=== PATIENT | female | born 1970 | race Caucasian/White ===

== ENCOUNTER 2016-06-08 06:05 | Inpatient (IN) | payer OTHER ==
[~2016-06-08] VITALS: Ht 170.2 cm; Wt 139.6 kg
[~2016-06-08 06:05] MED LIST: ASPI-664 PO; BENA10TA48 PO; INSU100C SC; LANT3I SC
--- NOTE | 2016-06-08 06:25 | ERA ---
ER Documentation Chief Complaint Date/Time DATE: 06/08/16 TIME: 06:22 Chief Complaint midsternal chest pain, cough,Dx @ [place] for CHF & cough HPI This is a 46-year-old female that was transferred from [facility] for direct admission to treat congestive heart failure and pneumonia however no beds were available therefore she came through the emergency room. The patient had had a non-productive cough for the past 48 hours with pleuritic chest pain. She has a history of hypertension and insulin-dependent diabetes mellitus. She denied any fever shaking or chills. The patient denies any swelling of her lower extremities. She denies any shortness of breath at rest or exertion. The patient indicates she has been compliant with her medications and takes 20 mg of Lasix on a daily basis. The patient is a chest radiograph that was performed at [facility] and indicated that there was a mild right costophrenic angle opacity that likely was due to effusion and atelectasis although pneumonia cannot be excluded. The patient had been given IV Rocephin and nebulizer treatment as according to the dictation note from the original evaluating physician at [place] had respirations that were even and unlabored with no accessory muscle use. ROS All systems reviewed and are negative except as per history of present illness. Medications Home Meds Reported Medications Aspirin* (Aspirin* EC) 81 Mg Tablet.dr, 81 MG PO DAILY, TAB 03/26/14 Benazepril Hcl* (Benazepril Hcl*) 10 Mg Tablet, 10 MG PO DAILY, TAB 03/26/14 Insulin Glargine* (Lantus*) 100 Unit/Ml Soln, 10 UNIT SC DAILY, EA 03/26/14 Insulin Lispro (Humalog) 100 U/Ml Cartridge, 14 UNITS SC BID, EA 03/26/14 Allergies Allergies: Coded Allergies: No Known Allergy (Unverified , 06/08/16) PMhx/Soc Hx Alcohol Use: No Hx Substance Use: No Hx Tobacco Use: No Physical Exam Vitals Vital Signs Date Time Temp Pulse Resp B/P Pulse Ox O2 Delivery O2 Flow Rate FiO2 06/08/16 06:14 98.7 86 18 115/73 100 Physical Exam Constitutional:Well-developed. Well-nourished. HEENT:Normocephalic. Atraumatic.Pupils were equal round reactive to light. Moist mucous membranes.No tonsillar exudates. Neck: No nuchal rigidity. No lymphadenopathy. No posterior cervical spine tenderness or step-offs. Respiratory: Not using accessory muscles of respiration.Lungs were clear to auscultation bilaterally. No rhonchi. No rales. No wheezing. Cardiovascular: Regular rate regular rhythm.No murmurs. No rubs were appreciated.S1, S2 normal. Distal pulses are palpable 2+ bilaterally. GI: Abdomen was soft. Nontender. Non Distended. No pulsatile abdominal masses or bruits. No rebound. No guarding. Bowel sounds were present and normal. Muscle skeletal: Full range of motion of both the upper and lower extremities bilaterally.Normal muscle tone.No assymetrical calf tenderness or swelling. Skin: No petechia, no purpura. No lesions on the palms or the soles of the feet. No maculopapular rash. NEURO: Patient was alert, awake, orientated x3.No facial droop. Gait observed and normal with no ataxia.Speech had regular rate and rhythm. No focal neurological deficits. Results 24 hrs Laboratory Tests Test 06/08/16 07:18 Bedside Glucose 47mg/dL Current Medications Medications (Trade) Dose Ordered Sig/Frank Route PRN Reason Start Time Stop Time Status Last Admin Dose Admin Ondansetron HCl (Zofran Inj) 4 mg ER BRIDGE PRN IV NAUSEA AND/OR VOMITING 06/08/16 07:00 06/09/16 06:59 Acetaminophen (Tylenol Tab) 650 mg ER BRIDGE PRN PO MILD PAIN/FEVER 06/08/16 07:00 06/09/16 06:59 Dextrose (D50w Syringe) 50 ml STK-MED ONCE .ROUTE 06/08/16 07:21 06/08/16 07:22 DC Dextrose (D50w Syringe) 50 ml ONCE STAT IV 06/08/16 07:22 06/08/16 07:23 DC 06/08/16 07:25 Procedures/MDM This patient had already been transferred from [facility] with ancillary laboratory work chest radiograph and an EKG that indicated the patient had a normal sinus rhythm at 88 bpm. DC interval normal QRS duration normal there is left atrial enlargement and time of the EKG was a 2316. The patient was in no respiratory distress upon arrival into the emergency department at [facility] after she been transferred from [place]. She is already received blood cultures and had been given IV Rocephin. Report had been given to Dr. Altman and I will inform her that the patient has arrived. Therefore the patient will be admitted in serious condition to the telemetry service for pneumonia. The patient's BNP obtained at [facility] was 423. The patient was anemic with hemoglobin of 8.9 Rocephin had been given at 1 :07 AM. I spoke with Dr. Osullivan and the patient is currently awaiting a bed on the telemetry service. Therefore at this time I have repeated ancillary laboratory work and chest x-ray as requested by Dr. Osullivan. The patient stated she was feeling slightly diaphoretic and anxious and therefore nursing staff repeated an Accu-Chek which was 47. The patient was given juice and an amp of D50 and had remained alert awake orientated 3. Departure Diagnosis: Primary Impression: Pneumonia Qualified Code: J18.9 - Pneumonia of right lower lobe due to infectious organism Condition: Serious KASIA THOMPSON Jun 08, 2016 06:25
[2016-06-08] MEDS ORDERED: ACETAMINOPHEN 325 MG TAB PO PRN ×2 (07:00→11:30)
[2016-06-08] MEDS ORDERED: ONDANSETRON 4 MG INJ IV PRN (07:00)
[2016-06-08 07:17] LABS: ADD SCAN DIFF NO
[2016-06-08] MEDS ORDERED: DEXTROSE 50% 50 ML SYRINGE ONE (07:21)
[2016-06-08] MEDS ORDERED: DEXTROSE 50% 50 ML SYRINGE IV STA (07:22)
[2016-06-08 07:34] LABS: BASOPHILS % 0.4 % (0.0-2.0); EOSINOPHILS # 0.1 10^3/ul (0.0-0.5); EOSINOPHILS % 2.5 % (0.0-7.0); HEMATOCRIT 26.5 % (37.0-47.0); HEMOGLOBIN 8.5 g/dl (12.0-16.0); LYMPHOCYTES # 1.3 10^3/ul (0.8-2.9); LYMPHOCYTES % 23.5 % (15.0-51.0); MEAN CORPUSCULAR HEMOGLOBIN 28.2 pg (29.0-33.0); MEAN CORPUSCULAR HGB CONC 32.1 g/dl (32.0-37.0); MEAN PLATELET VOLUME 10.2 fl (7.4-10.4); MONOCYTE # 0.6 10^3/ul (0.3-0.9); NEUTROPHIL # 3.5 10^3/ul (1.6-7.5); NEUTROPHILS % 62.4 % (39.0-77.0); PLATELET COUNT 317 10^3/UL (140-415); RED BLOOD COUNT 3.01 10^6/ul (4.20-5.40); RED CELL DISTRIBUTION WIDTH 14.1 % (11.5-14.5); WHITE BLOOD COUNT 5.7 10^3/ul (4.8-10.8)
[2016-06-08 07:49] LABS: INR 0.97; PARTIAL THROMBOPLASTIN TIME 27.5 Sec (25.0-35.0); PROTIME 12.9 Sec (12.2-14.2)
[2016-06-08 08:39] LABS: ALBUMIN 3.3 g/dl (3.3-4.9); CHLORIDE 107 mmol/L (97-110)
[2016-06-08 08:40] LABS: POTASSIUM 4.4 mmol/L (3.5-5.1); SODIUM 139 mmol/L (135-144)
--- NOTE | 2016-06-08 08:40 | RADRPT ---
PROCEDURE: XR Chest. CLINICAL INDICATION: Chest pain. TECHNIQUE: Single frontal chest x-ray. COMPARISON: None available. FINDINGS: The cardiomediastinal silhouette is unremarkable. Bibasilar atelectasis is noted. No pneumothorax, pleural effusion or consolidation is seen. No acute osseous abnormality is noted. IMPRESSION: 1. Bibasilar atelectasis. 2. Otherwise no acute cardiopulmonary abnormality. RPTAT: QQ .Eileen Fink MD, Date Time Electronically viewed and signed by .Eileen Fink MD, on 06/08/2016 08:39 .N/
[2016-06-08 08:42] LABS: ALKALINE PHOSPHATASE 70 IU/L (42-121); ASPARTATE AMINO TRANSFERASE 19 IU/L (15-46); BILIRUBIN,INDIRECT 0.1 mg/dl (0-1.1); CARBON DIOXIDE 23 mmol/L (21-31); TOTAL PROTEIN 6.3 g/dl (6.1-8.1)
[2016-06-08 08:44] LABS: ANION GAP 13 (8-16)
[2016-06-08 08:45] LABS: ALANINE AMINOTRANSFERASE 29 IU/L (13-69); BILIRUBIN,TOTAL 0.1 mg/dl (0.2-1.3); BLOOD UREA NITROGEN 32 mg/dl (7-20); CALCIUM 8.5 mg/dl (8.4-10.2); CREATINE KINASE 100 IU/L (23-200); CREATININE 1.46 mg/dl (0.44-1.00); GLUCOSE 50 mg/dl (70-220)
[2016-06-08] MEDS ORDERED: INSU100C SQ (09:01)
[2016-06-08] MEDS ORDERED: BENA5TAB2 PO (09:01)
[2016-06-08 09:02] LABS: B-TYPE NATRIURETIC PEPTIDE 388 PG/ML (0-125); CK-MB 0.71 ng/ml (0.0-2.4); TROPONIN-I < 0.012 ng/ml (0.00-0.12)
[2016-06-08] MEDS ORDERED: INSU300I SQ ×2 (09:02)
[2016-06-08] MEDS ORDERED: GLUCOSE GEL 15 GRAM TUBE PO PRN ×2 (11:30)
[2016-06-08] MEDS ORDERED: ONDANSETRON 4 MG TAB PO PRN (11:30)
[2016-06-08] MEDS ORDERED: GLUCOSE GEL 15 GRAM TUBE BUCCAL PRN (11:30)
[2016-06-08] MEDS ORDERED: GLUCAGON 1 MG INJ IM PRN (11:30)
[2016-06-08] MEDS ORDERED: DEXTROSE 50% 50 ML SYRINGE IV PRN ×2 (11:30)
[2016-06-08] MEDS ORDERED: DOCUSATE SODIUM 100 MG CAP PO PRN (11:30)
[2016-06-08] MEDS ORDERED: AZITHROMYCIN 250 MG TAB PO ONE (11:30)
[2016-06-08] MEDS ORDERED: NACL 0.9% 3 ML SYG IV SCH (11:30)
[2016-06-08] MEDS: INSULIN ASPART [NOVOLOG] 3 ML PEN SC SCH ×2 (12:03→18:09)
[2016-06-08] MEDS: FUROSEMIDE 20 MG TAB PO SCH (12:10)
[2016-06-08 18:47] VITALS: TEMP 98.7
[2016-06-08] MEDS: CEFTRIAXONE 1 GM/50 ML (PMX) 50 ML IVPB SCH (19:14)
[2016-06-08] MEDS: HYDROCODONE/APAP (5/325) TAB PO PRN (19:15)
[2016-06-08 20:00] VITALS: BP 129/75; RESP 19
[2016-06-08] MEDS: INSULIN GLARGINE [LANtus] 3 ML PEN SC SCH (20:00)
[2016-06-08 21:57] VITALS: Ht 170.2 cm; Wt 139.6 kg
[2016-06-09] VITALS (10 sets, daily range): BP systolic 103–136; BP diastolic 58–82; PULSE 54–83; RESP 18–19
[2016-06-09] MEDS: PANTOPRAZOLE (EC) 40 MG TAB PO SCH (05:50)
[2016-06-09] MEDS: INSULIN ASPART [NOVOLOG] 3 ML PEN SC SCH ×3 (07:25→17:18)
--- NOTE | 2016-06-09 07:39 | HP ---
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 CHIEF COMPLAINT: Cough and congestion. HISTORY OF PRESENT ILLNESS: This is a 46-year-old female with past medical history of diabetes rica itus, hypertension, dyslipidemia, morbid obesity, renal insufficiency, trigger finger, bilateral ank le surgery, who has been complaining of having cough and congestion for the past week. She was seen and evaluated at [facility] on Tuesday and was started on azithromycin, al though the patient continued to complain of having cough and congestion without any fever or chills. She returned back to [facility] complaining of exacerbation of her cough . Chest x-ray was obtained which showed mild right costophrenic angle likely due to effusion and atelectasis, although pneumonia could not be excluded. WBC was found to be mildly elevated at 10.1. The patient was treated with a dose of azithromycin and Lasix in the course of the emergency room and was transferred to [facility] secondary to insurance purposes. At this t [facility], patient continues to have cough and congestion. She denies having any chest pain. No shortnes s of breath. No abdominal pain, no nausea, vomiting, diarrhea. No headache, dizziness. No neck pa in. No restricted range of motion upper and lower extremities or any other discomfort. PAST MEDICAL AND SURGICAL HISTORY: As above per HPI. MEDICATIONS: 1. Aspirin. 2. Benazepril. 3. Lantus. 4. Humalog. ALLERGIES: NO KNOWN DRUG ALLERGIES. FAMILY HISTORY: Positive for hypertension and diabetes. SOCIAL HISTORY: Denies smoking cigarettes, illicit drugs or alcohol. She lives at home with her [facility]. REVIEW OF SYSTEMS: As above per HPI, otherwise 12 review of systems has been found to be negative. PHYSICAL EXAMINATION: VITAL SIGNS: Temperature 98.7, pulse 82, respirations 19, blood pressure 123/70, oxygen 100% in pina m air. GENERAL APPEARANCE: The patient is lying in bed comfortably without any distress. She is awake, al ert, oriented. She is able to answer my questions properly. Body habitus is morbidly obese with BM I of 48.2. EYES AND ENT: Conjunctivae and lids are normal. Pupils are normal. Extraocular normal. Hearing g rossly normal. Lips, teeth and gums normal. Oral mucosa is mildly dry. NECK: Supple. Trachea midline. No lymphadenopathy. RESPIRATORY: Effort is normal. Clear to auscultation bilaterally. CARDIOVASCULAR: Normal S1, S2. Regular rhythm and rate. No murmur, no bruits, no edema. Peripher al pulses, radial pulses palpable. Capillary refill is normal. CHEST: Normal expansion of thorax during inspiration. GASTROINTESTINAL: Abdomen is soft, nontender, not distended. Bowel sounds present. No guarding or rebound. GENITOURINARY: Deferred. MUSCULOSKELETAL: Upper and lower extremities within normal limits. Full range of motion. Strength 5/5 in both upper and lower extremities. NEUROLOGIC: Cranial nerves II through XII are grossly intact. PSYCHIATRIC: Normal judgment and insight. Alert and oriented x3. Mood and affect is normal. LABORATORY DATA: Potassium 5.0, BUN 35, creatinine 1.63, calcium 8.4, GFR 34. BNP 423. EKG showed normal sinus rhythm with possible left atrial enlargement, nonspecific T-wave abnormality, ventricu lar rate of 88. Chest x-ray as above per HPI. WBC 10.1, hemoglobin 8.9, hematocrit 27.2, MCV 84, p latelet 291. ASSESSMENT AND PLAN: 1. Mild right pleural effusion with possible pneumonia. The patient has been started on azithromyc in and Rocephin will continue this regimen. 2. Diabetes mellitus. Continue Lantus insulin sliding scale and low carbohydrate diet. 3. Essential hypertension, well controlled on medical management. 4. Questionable congestive heart failure with a BNP of 423. The patient has been started on Lasix. Continue benazepril. 5. Morbid obesity. Diet and exercise has been recommended. 6. Anemia. We will continue to monitor. We will transfuse if hemoglobin is less than 7.5. 7. For deep venous thrombosis prophylaxis, at this time will place the patient on sequential compre ssion devices. Refrain from using any pharmacologic DVT prophylaxis secondary to anemia. 8. Dictation Ends Here. Dictated By: DELANO PEOPLES/ERASMO Conf#: [id number] DID#: [id number]
[2016-06-09 07:50] LABS: ADD SCAN DIFF NO
[2016-06-09 07:59] LABS: BASOPHILS % 0.9 % (0.0-2.0); EOSINOPHILS # 0.2 10^3/ul (0.0-0.5); EOSINOPHILS % 4.2 % (0.0-7.0); HEMATOCRIT 28.5 % (37.0-47.0); HEMOGLOBIN 9.1 g/dl (12.0-16.0); LYMPHOCYTES # 1.5 10^3/ul (0.8-2.9); LYMPHOCYTES % 35.5 % (15.0-51.0); MEAN CORPUSCULAR HEMOGLOBIN 28.1 pg (29.0-33.0); MEAN CORPUSCULAR HGB CONC 31.9 g/dl (32.0-37.0); MEAN PLATELET VOLUME 10.5 fl (7.4-10.4); MONOCYTE # 0.6 10^3/ul (0.3-0.9); MONOCYTES % 13.1 % (0.0-11.0); NEUTROPHILS % 46.1 % (39.0-77.0); PLATELET COUNT 313 10^3/UL (140-415); RED BLOOD COUNT 3.24 10^6/ul (4.20-5.40); RED CELL DISTRIBUTION WIDTH 14.1 % (11.5-14.5); WHITE BLOOD COUNT 4.3 10^3/ul (4.8-10.8)
[2016-06-09 08:10] LABS: POTASSIUM 4.7 mmol/L (3.5-5.1)
[2016-06-09 08:12] LABS: CREATININE 1.41 mg/dl (0.44-1.00)
[2016-06-09 08:14] LABS: MAGNESIUM 1.8 mg/dl (1.7-2.5)
[2016-06-09] MEDS: FUROSEMIDE 20 MG TAB PO SCH (08:48)
[2016-06-09] MEDS: BENAZEPRIL 5 MG TAB PO SCH (08:48)
[2016-06-09] MEDS: AZITHROMYCIN 250 MG TAB PO SCH (08:48)
[2016-06-09] MEDS: ASPIRIN (EC) 81 MG TAB PO SCH (08:48)
[2016-06-09] MEDS: HYDROCODONE/APAP (5/325) TAB PO PRN ×2 (08:55→21:17)
[2016-06-09] MEDS ORDERED: ENOXAPARIN 40 MG/0.4 ML SYG SC SCH (09:00)
--- NOTE | 2016-06-09 12:14 | PN ---
Date/Time of Note Date/Time of Note DATE: 06/09/16 TIME: 12:13 Assessment/Plan VTE Prophylaxis VTE Prophylaxis Intervention: SCD's Lines/Catheters IV [facility]ter [facility]from [facility] Urinary Cath still in place: No Assessment/Plan Assessment/Plan 1. Mild right pleural effusion with possible pneumonia. The patient has been started on azithromycin and Rocephin will continue this regimen. 2. Diabetes mellitus. Continue Lantus insulin sliding scale and low carbohydrate diet. 3. Essential hypertension, well controlled on medical management. 4. Questionable congestive heart failure with a BNP of 423. The patient has been started on Lasix. Continue benazepril. 5. Morbid obesity. Diet and exercise has been recommended. 6. Anemia. We will continue to monitor. We will transfuse if hemoglobin is less than 7.5. 7. For deep venous thrombosis prophylaxis, SCD downgrade to med/surge floor Subjective 24 Hr Interval Summary Free Text/Dictation Cr 1.41, SOB improvig, BP stable Exam/Review of Systems Vital Signs Vitals Vital Signs Date Time Temp Pulse Resp B/P Pulse Ox O2 Delivery O2 Flow Rate FiO2 06/09/16 12:11 74 06/09/16 11:37 98.1 18 103/58 96 06/08/16 18:47 Room Air Intake and Output 06/08/16 06/08/16 06/09/16 15:00 23:00 07:00 Intake Total 400 ml Balance 400 ml Exam GENERAL APPEARANCE: no acute distress, morbidly obese RESPIRATORY: Effort is normal. Clear to auscultation bilaterally. CARDIOVASCULAR: Normal S1, S2. Regular rhythm and rate. No murmur, no bruits , no edema. Peripheral pulses, radial pulses palpable. Capillary refill is normal. CHEST: Normal expansion of thorax during inspiration. GASTROINTESTINAL: Abdomen is soft, nontender, not distended. Bowel sounds present. No guarding or rebound. MUSCULOSKELETAL: Upper and lower extremities within normal limits. Full range of motion. Strength 5/5 in both upper and lower extremities. Results Result Diagram: 06/09/16 0706/09/16 07 Results 24 hrs Laboratory Tests Test 06/08/16 20:56 06/09/16 07:03 06/09/16 08:12 06/09/16 11:41 Bedside Glucose 112 88 144 White Blood Count 4.3 #L Red Blood Count 3.24 L Hemoglobin 9.1 L Hematocrit 28.5 L Mean Corpuscular Volume 88.0 Mean Corpuscular Hemoglobin 28.1 L Mean Corpuscular Hemoglobin Concent 31.9 L Red Cell Distribution Width 14.1 Platelet Count 313 Mean Platelet Volume 10.5 H Neutrophils % 46.1 Lymphocytes % 35.5 Monocytes % 13.1 H Eosinophils % 4.2 Basophils % 0.9 Nucleated Red Blood Cells % 0.0 Neutrophils # 2.0 Lymphocytes # 1.5 Monocytes # 0.6 Eosinophils # 0.2 Basophils # 0.0 Nucleated Red Blood Cells # 0.0 Sodium Level 139 Potassium Level 4.7 Chloride Level 109 Carbon Dioxide Level 24 Anion Gap 11 Blood Urea Nitrogen 30 H Creatinine 1.41 H Glucose Level 97 # Calcium Level 9.0 Magnesium Level 1.8 Medications Medications Current Medications Aspirin (Halfprin) 81 mg DAILY PO Last administered on 06/09/16 08:48; Admin Dose 81 MG; Start 06/09/16 at 09:00 Benazepril HCl 5 mg 5 mg DAILY PO Last administered on 06/09/16 08:48; Admin Dose 5 MG; Start 06/09/16 at 09:00 Ceftriaxone Sodium (Rocephin) 50 ml @ 100 mls/hr Q24H IVPB Last administered on 06/08/16 19:14; Admin Dose 100 MLS/HR; Start 06/08/16 at 20:00 Azithromycin (Zithromax) 250 mg DAILY PO Last administered on 06/09/16 08:48; Admin Dose 250 MG; Start 06/09/16 at 09:00; Stop 06/11/16 at 23:00 Miscellaneous Information 1 ea NOTE XX ; Start 06/08/16 at 11:30 Glucose (Glutose) 15 gm Q15M PRN PO DECREASED GLUCOSE; Start 06/08/16 at 11:30 Glucose (Glutose) 22.5 gm Q15M PRN PO DECREASED GLUCOSE; Start 06/08/16 at 11: 30 Dextrose (D50w Syringe) 25 ml Q15M PRN IV DECREASED GLUCOSE; Start 06/08/16 at 11:30 Dextrose (D50w Syringe) 50 ml Q15M PRN IV DECREASED GLUCOSE; Start 06/08/16 at 11:30 Glucagon (Glucagen) 1 mg Q15M PRN IM DECREASED GLUCOSE; Start 06/08/16 at 11:30 Glucose (Glutose) 15 gm Q15M PRN BUCCAL DECREASED GLUCOSE; Start 06/08/16 at 11 :30 Ondansetron HCl (Zofran Tab) 4 mg Q6H PRN PO NAUSEA AND/OR VOMITING; Start at 11:30 Acetaminophen (Tylenol Tab) 650 mg Q6H PRN PO PAIN LEVEL 1-3 OR FEVER; Start at 11:30 Acetaminophen/ Hydrocodone Bitart (Lyons (5/325)) 1 tab Q6H PRN PO MODERATE PAIN LEVEL 4-6 Last administered on 06/09/16 08:55; Admin Dose 1 TAB; Start at 11:30 Docusate Sodium (Colace) 100 mg Q12H PRN PO CONSTIPATION; Start 06/08/16 at 11: 30 Pantoprazole (Protonix Tab) 40 mg DAILY@06 PO Last administered on 06/09/16 05 :50; Admin Dose 40 MG; Start 06/09/16 at 06:00 Insulin Glargine (Lantus) 20 unit DAILY@20 SC ; Start 06/08/16 at 20:00 Furosemide (Lasix) 20 mg DAILY PO Last administered on 06/09/16 08:48; Admin Dose 20 MG; Start 06/08/16 at 12:00 NOAM ALVAREZ MD Jun 09, 2016 12:14
[2016-06-09] MEDS: CEFTRIAXONE 1 GM/50 ML (PMX) 50 ML IVPB SCH (20:58)
[2016-06-09] MEDS: INSULIN GLARGINE [LANtus] 3 ML PEN SC SCH (21:23)
[2016-06-10] VITALS: BP 122/66; RESP 19
[2016-06-10 05:09] VITALS: BP 118/69; RESP 19
[2016-06-10] MEDS: PANTOPRAZOLE (EC) 40 MG TAB PO SCH (06:22)
[2016-06-10 07:26] VITALS: BP 108/62; RESP 18
[2016-06-10] MEDS: AZITHROMYCIN 250 MG TAB PO SCH (08:31)
[2016-06-10] MEDS: FUROSEMIDE 20 MG TAB PO SCH (08:32)
[2016-06-10] MEDS: BENAZEPRIL 5 MG TAB PO SCH (08:32)
[2016-06-10] MEDS: ASPIRIN (EC) 81 MG TAB PO SCH (08:32)
[2016-06-10] MEDS: INSULIN ASPART [NOVOLOG] 3 ML PEN SC SCH ×3 (08:40→17:29)
[2016-06-10 11:38] VITALS: BP 111/63; RESP 18
[2016-06-10 12:23] LABS: ADD SCAN DIFF NO
[2016-06-10 12:30] LABS: BASOPHILS % 0.4 % (0.0-2.0); EOSINOPHILS # 0.1 10^3/ul (0.0-0.5); EOSINOPHILS % 2.6 % (0.0-7.0); HEMATOCRIT 29.5 % (37.0-47.0); HEMOGLOBIN 9.5 g/dl (12.0-16.0); LYMPHOCYTES # 2.2 10^3/ul (0.8-2.9); LYMPHOCYTES % 47.1 % (15.0-51.0); MEAN CORPUSCULAR HEMOGLOBIN 28.3 pg (29.0-33.0); MEAN CORPUSCULAR HGB CONC 32.2 g/dl (32.0-37.0); MEAN CORPUSCULAR VOLUME 87.8 fl (82.0-101.0); MEAN PLATELET VOLUME 10.4 fl (7.4-10.4); MONOCYTE # 0.6 10^3/ul (0.3-0.9); MONOCYTES % 12.7 % (0.0-11.0); NEUTROPHIL # 1.7 10^3/ul (1.6-7.5); PLATELET COUNT 319 10^3/UL (140-415); RED BLOOD COUNT 3.36 10^6/ul (4.20-5.40); RED CELL DISTRIBUTION WIDTH 13.9 % (11.5-14.5); WHITE BLOOD COUNT 4.6 10^3/ul (4.8-10.8)
[2016-06-10 12:41] LABS: POTASSIUM 5.1 mmol/L (3.5-5.1)
[2016-06-10 12:43] LABS: CREATININE 1.55 mg/dl (0.44-1.00)
[2016-06-10 12:44] LABS: CALCIUM 9.1 mg/dl (8.4-10.2); MAGNESIUM 1.7 mg/dl (1.7-2.5)
[2016-06-10 14:38] VITALS: BP 123/79; RESP 22
--- NOTE | 2016-06-10 16:59 | PDOCDIS ---
Discharge Instructions CONDITION Patient Condition: Good HOME CARE INSTRUCTIONS: Special Diet: low carb diet ACTIVITY: Activity Restrictions: No Restrictions FOLLOW UP/APPOINTMENTS Appointments Follow up with PCP in one week DELANO GIFFORD MD Jun 10, 2016 16:58
[2016-06-10] MEDS ORDERED: LANT3I SC (17:01)
[2016-06-10] MEDS ORDERED: AZIT250T6 PO (17:01)
[2016-06-10] MEDS ORDERED: FURO20TA3 PO (17:01)
[2016-06-10] MEDS ORDERED: CEPH500C PO (17:01)
[2016-06-10] MEDS ORDERED: UDROBDM PO (17:03)
--- NOTE | 2016-06-10 18:29 | DS ---
DATE OF ADMISSION: 06/08/2016 DATE OF DISCHARGE: 06/10/2016 CONSULTANTS: None. FINAL DIAGNOSES 1. Mild right pleural effusion with question of pneumonia. The patient is afebrile. WBC is within normal limits. 2. Diabetes mellitus, well controlled on Lantus. 3. Essential hypertension, well controlled on medical management. 4. Questionable congestive heart failure with a BNP 423 on Lasix and continue benazepril. 5. Morbid obesity. Diet and exercise. 6. Anemia. Continue to monitor as outpatient. MEDICATIONS: 1. Aspirin. 2. Azithromycin. 3. Benazepril. 4. Keflex. 5. Lasix. 6. Robitussin. 7. Lexapro. 8. NovoLog. ALLERGIES: NO KNOWN DRUG ALLERGIES. LABORATORY DATA VITAL SIGNS: Temperature 98.3, pulse 73, respiration 20, blood pressure 132/79, oxy gen saturation 98%. Sodium 137, potassium 4.1, chloride 106, bicarbonate 24, BUN 42, creatinine 1.5 5, glucose 167, calcium 9.1, magnesium 1.7. WBC 4.3, hemoglobin 9.5, hematocrit 29.5, platelets 319 . HOSPITAL COURSE: This is a pleasant 46-year-old female with past medical history of diabetes mellit us, hypertension, dyslipidemia, obesity, renal insufficiency, trigger finger, bilateral ankle surger ies who has been complaining of having cough and congestion x1 week. The patient was seen and evalu ated at [facility] on Tuesday and started on azithromycin although patient continued to complain of having cough, congestion, fever and chills. He returned back to [facility] complaining of having exacerbation of cough. Chest x-ray was obtained wh ich showed right mild costovertebral angle effusion and atelectasis, although pneumonia could not be excluded. WBC was elevated at 10.1. Patient was treated with a dose of azithromycin and Lasix and was transferred to [facility] secondary to insurance purposes. The patient was a dmitted. She was started on Rocephin, azithromycin and Lasix. For her diabetes mellitus, she was p laced on Lantus insulin and low-carbohydrate diet. For her hypertension, continue benazepril, altho ugh patient has been placed on Lasix as well. Patient's renal panel has been at baseline. Patient has been continued to have cough and congestion, which has been improving significantly. At this ti me, the patient is medically stable to be discharged home with a close followup with primary care ph ysician as outpatient. WBC is within normal limits and her vitals are stable. She denies having an y chest pain, shortness of breath and has been able to ambulate without difficulty or shortness of b reath. Dictated By: DELANO PEOPLES/ERASMO Conf#: [id number] DID#: [id number]
== END 2016-06-10 19:05 | disposition home or self-care (01) | DRG 186 ==
LOC: E/R 06:05 → TEL 06:39 → MS2 06-10 14:00
PROVIDERS: ADMIT Family Medicine; ATTEND Family Medicine
DX: J90 Pleural effusion, not elsewhere classified (principal); J18.9 Pneumonia, unspecified organism; Z68.42 Body mass index [BMI] 45.0-49.9, adult; E11.9 Type 2 diabetes mellitus without complications; I10 Essential (primary) hypertension; D64.9 Anemia, unspecified; E66.01 Morbid (severe) obesity due to excess calories; E78.5 Hyperlipidemia, unspecified
CPT/HCPCS: 36415; 71010; 80048; 80053; 82550; 82553; 82962; 83735; 83880; 84484; 85025; 85610; 85730; 96365; 96372; J0696; J1815

== ENCOUNTER 2017-05-23 17:01 | Emergency (ER) | END 2017-05-23 20:28 | disposition home or self-care (01) ==

== ENCOUNTER 2017-06-03 22:22 | Emergency (ER) | END 2017-06-04 05:05 | disposition home or self-care (01) ==

== ENCOUNTER 2017-09-27 07:30 | Day surgery (SDC) | END 2017-09-27 14:50 | disposition home or self-care (01) ==